=== PATIENT | male | born 1930 | race Caucasian/White ===

== ENCOUNTER 2016-11-22 23:55 | Emergency (ER) | payer OTHER ==
[~2016-11-22] VITALS: Ht 175.3 cm; Wt 65.0 kg
[~2016-11-22 23:55] MED LIST: ATOR40TA49 PO; CARD120C4 PO; COUM5TAB PO; GLUC10TA3 PO; LISI-360 PO; LORTA5 PO; METF-324 PO; MULT-28 PO; NADO1TAB16 PO; SYNT25TA PO; TAMS0.4C67 PO; VITA-13 PO; VITA250T5 PO; VITA400C70 PO; ZOFR4TAB3 SL
[2016-11-22 23:57] VITALS: BP 187/81; PULSE 94; RESP 18; TEMP 98; O2SAT 99
[2016-11-23] MEDS ORDERED: SODIUM CHLOR 0.9% 1000 ML INJ 1,000 ML IV SCH (00:20)
[2016-11-23] MEDS ORDERED: MULT-135 PO (00:26)
[2016-11-23] MEDS ORDERED: GLIP10TA6 PO (00:26)
[2016-11-23] MEDS ORDERED: LISI10TA3 PO (00:26)
[2016-11-23] MEDS ORDERED: LEVO100T5 PO (00:26)
[2016-11-23] MEDS ORDERED: DILT60TA PO (00:26)
[2016-11-23] MEDS ORDERED: VITA100064 PO (00:26)
[2016-11-23] MEDS ORDERED: VITA400C5 PO (00:26)
[2016-11-23] MEDS ORDERED: METF1000 PO (00:26)
[2016-11-23] MEDS ORDERED: WARF-23 PO (00:26)
[2016-11-23] MEDS ORDERED: ATOR20TA15 PO (00:26)
[2016-11-23] MEDS ORDERED: METO50TA PO (00:26)
--- NOTE | 2016-11-23 00:26 | PD ---
HPI Chief Complaint: Abdominal Pain Time Seen by Provider: 00:12 Travel History International Travel<30 days: No Contact w/Intl Traveler<30days: No Traveled to known affect area: No History of Present Illness HPI Patient is a 86-year-old male who presents to emergency room with his family for evaluation of abdominal pain. Patient reports that he felt fine all day, reports that he woke up tonight and had pain to his right lower abdomen. Patient reports that he felt nauseous, he did not vomit. Patient reports "I think I have appendicitis." Patient with no fevers or chills, reports that he has been having normal bowel movements. Patient with no other complaints. PFSH Past Medical History Hx Anticoagulant Therapy: Yes (WARFARIN) Atrial Fibrillation: Yes Cardiovascular Problems: Yes (BY PASS SURG>12 YRS AGO, HTN) Chest Pain: Yes Cerebrovascular Accident: Yes (CVA) Diabetes: Yes Patient Takes Glucophage: No Diminished Hearing: Yes (hearing aid bilat) GERD: Yes Hypertension: Yes Kidney Stones: Yes Neurologic: Yes (BELLS PALSY) Myocardial Infarction: Yes Thyroid Disease: Yes (HYPOTHYROIDISM) Past Surgical History Abdominal Surgery: Yes (GALLBLADDER) Cardiac Surgery: Yes (CABG) Cholecystectomy: Yes Coronary Artery Bypass Graft: Yes (x4) Eye Surgery: Yes (CATARACT BOTH) Thoracic Surgery: Yes (LEFT TIBIA & FIBIA, RIGHT KNEE) Tonsillectomy: Yes Other Surgery: Yes (THYROIDECTOMY) Family History Family Hypercholesterolemia: Yes (BOTH) Social History Alcohol Use: No Tobacco Use: No Substance Use: No Allergies-Medications (Allergen,Severity, Reaction): Coded Allergies: No Known Allergies (Verified , 11/23/16) Reported Meds & Prescriptions Reported Meds & Active Scripts Active Flomax (Tamsulosin HCl) 0.4 Mg Cap 0.4 Mg PO HS Cephalexin Liq (Cephalexin Monohydrate) 250 Mg/5 Ml Susp 500 Mg PO Q6H 10 Days Tylenol-Codeine Elixir (Acetaminophen-Codeine Liq) 120-12 Mg/5 Ml Soln 7.5 Ml PO Q6H PRN Reported E-400 (Vitamin E) 400 Unit Cap 400 Units PO Vitamin D (Cholecalciferol) 1,000 Unit Tab 1,000 Units PO DAILY Multi Vitamin (Multiple Vitamin) 1 Tab Tab 1 Tab PO DAILY Warfarin 5 Mg Tab 5 Mg PO DAILY Metoprolol Tartrate 50 Mg Tab 2,000 Mg PO DAILY Atorvastatin (Atorvastatin Calcium) 20 Mg Tab 20 Mg PO HS Metformin (Metformin HCl) 1,000 Mg Tab 1,000 Mg PO DAILY With a meal Glipizide 10 Mg Tab 10 Mg PO DAILY Take 30 minutes before a meal Diltiazem (Diltiazem HCl) 60 Mg Tab 180 Mg PO DAILY Lisinopril 10 Mg Tab 50 Mg PO DAILY Levothyroxine (Levothyroxine Sodium) 100 Mcg Tab 100 Mcg PO DAILY Review of Systems General / Constitutional: No: Fever Eyes: No: Visual changes HENT: No: Headaches Cardiovascular: No: Chest Pain or Discomfort Respiratory: No: Shortness of Breath Gastrointestinal: Positive: Nausea, Abdominal Pain Genitourinary: No: Dysuria Musculoskeletal: No: Pain Skin: No Rash Neurologic: No: Weakness Psychiatric: No: Depression Endocrine: No: Polydipsia Hematologic/Lymphatic: No: Easy Bruising Physical Exam Narrative GENERAL: No acute distress, nontoxic SKIN: Warm and dry. HEAD: Atraumatic. Normocephalic. EYES: Pupils equal and round. No scleral icterus. No injection or drainage. ENT: No nasal bleeding or discharge. Mucous membranes pink and moist. NECK: Trachea midline. No JVD. CARDIOVASCULAR: Regular rate and rhythm. No murmur appreciated. RESPIRATORY: No accessory muscle use. Clear to auscultation. Breath sounds equal bilaterally. GASTROINTESTINAL: Abdomen soft, patient with tenderness to right lower quadrant , no guarding on exam MUSCULOSKELETAL: No obvious deformities. No clubbing. No cyanosis. No edema. NEUROLOGICAL: Awake and alert. No obvious cranial nerve deficits. Motor grossly within normal limits. Normal speech. PSYCHIATRIC: Appropriate mood and affect; insight and judgment normal. Data Data Last Documented VS Vital Signs Date Time Temp Pulse Resp B/P Pulse Ox O2 Delivery O2 Flow Rate FiO2 11/23/16 01:32 18 11/22/16 23:57 98.0 94 187/81 99 Room Air Orders Complete Blood Count With Diff (11/23/16 00:20) Comprehensive Metabolic Panel (11/23/16 00:20) Lipase (11/23/16 00:20) Prothrombin Time / Inr (Pt) (11/23/16 00:20) Act Partial Throm Time (Ptt) (11/23/16 00:20) Urinalysis - C+S If Indicated (11/23/16 00:20) Ct Abd/Pel W Iv Contrast(Rout) (11/23/16 00:20) Iv Access Insert/Monitor (11/23/16 00:20) Sodium Chlor 0.9% 1000 Ml Inj (Ns 1000 M (11/23/16 00:20) Sodium Chloride 0.9% Flush (Ns Flush) (11/23/16 00:30) Morphine Inj (Morphine Inj) (11/23/16 01:15) Iohexol 350 Inj (Omnipaque 350 Inj) (11/23/16 01:24) Urine Culture (11/23/16 03:02) Labs Laboratory Tests Test 11/23/16 11/23/16 00:28 01:54 White Blood Count 9.1 TH/MM3 Red Blood Count 3.73 MIL/MM3 Hemoglobin 11.3 GM/DL Hematocrit 34.6 % Mean Corpuscular Volume 92.8 FL Mean Corpuscular Hemoglobin 30.2 PG Mean Corpuscular Hemoglobin 32.5 % Concent Red Cell Distribution Width 15.0 % Platelet Count 203 TH/MM3 Mean Platelet Volume 7.9 FL Neutrophils (%) (Auto) 67.7 % Lymphocytes (%) (Auto) 21.8 % Monocytes (%) (Auto) 8.4 % Eosinophils (%) (Auto) 1.0 % Basophils (%) (Auto) 1.1 % Neutrophils # (Auto) 6.1 TH/MM3 Lymphocytes # (Auto) 2.0 TH/MM3 Monocytes # (Auto) 0.8 TH/MM3 Eosinophils # (Auto) 0.1 TH/MM3 Basophils # (Auto) 0.1 TH/MM3 CBC Comment DIFF FINAL Differential Comment Prothrombin Time 29.2 SEC Prothromb Time International 2.5 RATIO Ratio Activated Partial 32.4 SEC Thromboplast Time Sodium Level 141 MEQ/L Potassium Level 4.0 MEQ/L Chloride Level 105 MEQ/L Carbon Dioxide Level 24.0 MEQ/L Anion Gap 12 MEQ/L Blood Urea Nitrogen 24 MG/DL Creatinine 1.23 MG/DL Estimat Glomerular Filtration 56 ML/MIN Rate Random Glucose 126 MG/DL Calcium Level 9.4 MG/DL Total Bilirubin 0.5 MG/DL Aspartate Amino Transf 21 U/L (AST/SGOT) Alanine Aminotransferase 12 U/L (ALT/SGPT) Alkaline Phosphatase 31 U/L Total Protein 6.9 GM/DL Albumin 3.5 GM/DL Lipase 192 U/L Urine Color LIGHT-YELLOW Urine Turbidity CLEAR Urine pH 6.0 Urine Specific [place] 1.026 Urine Protein NEG mg/dL Urine Glucose (UA) TRACE mg/dL Urine Ketones TRACE mg/dL Urine Occult Blood LARGE Urine Nitrite NEG Urine Bilirubin NEG Urine Urobilinogen LESS THAN 2.0 MG/DL Urine Leukocyte Esterase NEG Urine RBC 90 /hpf Urine WBC 4 /hpf Urine Squamous Epithelial <1 /hpf Cells Urine Mucus FEW /lpf Microscopic Urinalysis Comment CULT NOT INDICATED MDM Medical Decision Making Medical Screen Exam Complete: Yes Emergency Medical Condition: Yes Interpretation(s) Vital Signs Date Time Temp Pulse Resp B/P Pulse Ox O2 Delivery O2 Flow Rate FiO2 11/22/16 23:57 98.0 94 18 187/81 99 Room Air Differential Diagnosis Acute gastroenteritis, appendicitis, UTI, electrolyte abnormality Narrative Course Patient is an 86-year-old male who presents to emergency room with complaints of right lower quadrant abdominal pain. Patient reports that symptoms began tonight, reports that he woke up from sleep with right lower quadrant pain. Patient concerned that his symptoms are secondary to acute appendicitis. Labs as well as CAT scan of the abdomen and pelvis ordered. CBC & BMP Diagram 11/23/16 00:28 Last Impressions Abdomen/Pelvis CT 11/23/16 0020 Signed Impressions: Service Date/Time: Wednesday, November 23, 2016 01:19 - CONCLUSION: 1. Mild right-sided obstructive uropathy secondary to a 3 mm calculus in the proximal right ureter. Nonobstructing left renal calculus. 2. Bladder diverticulum anteriorly and posteriorly. No bowel obstruction, free air or free fluid. Ovi Bruce MD Patient with a kidney stone. Patient reports that he is feeling much better at this time. A copy of patient's records as well as CAT scan report was given to patient. Patient has history of kidney stones in the past, he does follow-up with a urologist. Patient will call the urologist first thing in the morning for earliest follow-up. Signs and symptoms of when to return to the emergency room was reviewed with patient in detail. Urine culture sent. Diagnosis Primary Impression: Kidney stone on right side Additional Impression: Anemia Qualified Code: D64.9 - Anemia, unspecified type Patient Instructions: General Instructions, Narcotic given in the ED Additional Instructions: Please follow-up with the urologist as soon as possible Please take all medications as prescribed Return to emergency room if symptoms worsen or progress or if he develops any fevers or chills or intractable pain Please call your primary care doctor for earliest follow-up. Please drink plenty of fluids Med/Other Pt SpecificInfo: Prescription(s) given Scripts Tamsulosin (Flomax)0.4 Mg Cap0.4 Mg PO HS #10 CAP Ref 0 Prov:Allegra Briggs DO 11/23/16 Cephalexin Liq 250 Mg/5 Ml [id number] Mg PO Q6H 10 Days Ref 0 Prov:Allegra Birggs DO 11/23/16 Acetaminophen-Codeine Liq (Tylenol-Codeine Elixir)120-12 Mg/5 Ml Soln7.5 Ml PO Q6H PRN (PAIN) #120 ML Ref 0 Prov:Allegra Briggs DO 11/23/16 Disposition: 01 DISCHARGE HOME Condition: Stable Allegra Briggs DO Nov 23, 2016 00:26
[2016-11-23] MEDS ORDERED: SODIUM CHLORIDE 0.9% FLUSH 5 ML FLUSH IVF PRN (00:30)
[2016-11-23 00:42] LABS: AUTOMATED NEUTROPHIL # 6.1 TH/MM3 (1.8-7.7); BASOPHIL # 0.1 TH/MM3 (0-0.2); BASOPHIL % 1.1 % (0.0-2.0); EOSINOPHIL # 0.1 TH/MM3 (0-0.4); HEMATOCRIT 34.6 % (39.0-51.0); HEMO FLAGS DIFF FINAL; LYMPH % 21.8 % (9.0-44.0); MEAN CELL VOLUME 92.8 FL (80.0-100.0); MEAN CORPUSCULAR HEMOGLOBIN 30.2 PG (27.0-34.0); MEAN CORPUSCULAR HGB CONC 32.5 % (32.0-36.0); MONO % 8.4 % (0.0-8.0); NEUT % 67.7 % (16.0-70.0); PLATELET COUNT 203 TH/MM3 (150-450); RED BLOOD COUNT 3.73 MIL/MM3 (4.50-5.90); WHITE BLOOD COUNT 9.1 TH/MM3 (4.0-11.0)
[2016-11-23 00:53] LABS: APTT (PATIENT) 32.4 SEC (24.3-30.1); INTERNATIONAL NORMALIZED RATIO 2.5 RATIO; PROTHROMBIN TIME - PATIENT 29.2 SEC (9.8-11.6)
[2016-11-23 00:58] LABS: ANION GAP 12 MEQ/L (5-15); AST (GOT) 21 U/L (15-37); BLOOD UREA NITROGEN 24 MG/DL (7-18); CHLORIDE 105 MEQ/L (98-107); GLOMERULAR FILTRATION RATE 56 ML/MIN (>89); SODIUM (NA) 141 MEQ/L (136-145)
[2016-11-23 01:01] LABS: ALKALINE PHOSPHATASE 31 U/L (45-117); ALT (GPT) 12 U/L (12-78); TOTAL BILIRUBIN ADULT 0.5 MG/DL (0.2-1.0)
[2016-11-23] MEDS ORDERED: MORPHINE SULFATE 4 MG/ML INJ IV PUSH ONE (01:15)
[2016-11-23] MEDS ORDERED: IOHEXOL 350 MG/ML 10 ML VIAL (for RAD DIAG) IV ONE (01:24)
[2016-11-23 01:32] VITALS: RESP 18
--- NOTE | 2016-11-23 01:45 | RADRPT ---
EXAM DATE/TIME: 11/23/2016 01:19 [facility] COMPARISON: CT ABDOMEN & PELVIS W CONTRAST, September 05, 2013, 2:13. INDICATIONS : Abdominal pain. IV CONTRAST: 100 cc Omnipaque 350 (iohexol) IV ORAL CONTRAST: No oral contrast ingested. RADIATION DOSE: 4.95 CTDIvol (mGy) MEDICAL HISTORY : Hypertension. Renal calculi. Diabetes mellitus type 2. SURGICAL HISTORY : Cholecystectomy. ENCOUNTER: Initial ACUITY: 1 day PAIN SCALE: 8/10 LOCATION: abdomen TECHNIQUE: Volumetric scanning of the abdomen and pelvis was performed. Using automated exposure control and ad justment of the mA and/or kV according to patient size, radiation dose was kept as low as reasonably achievable to obtain optimal diagnostic quality images. FINDINGS: There is approximately 3 mm calculus in the proximal right ureter with minimal right-sided hydronephr osis and obstructive uropathy with some perinephric stranding. Lung bases are clear exam minimal atelectasis. Dense coronary calcifications. Postoperative cholecystectomy. Minimal biliary ductal dilatation. No acute findings in the liver, spl een, adrenals or pancreas. Nonobstructing 6 mm left renal calculus lower pole. Small cyst upper left kidney. No bowel obstruction. No free fluid or free air. Subcentimeter anterior bladder diverticulum and 4 cm posterior bladder diverticulum noted. Extensive vascular calcifications without aneurysm. CONCLUSION: 1. Mild right-sided obstructive uropathy secondary to a 3 mm calculus in the proximal right ureter. N onobstructing left renal calculus. 2. Bladder diverticulum anteriorly and posteriorly. No bowel obstruction, free air or free fluid. Ovi Bruce MD on November 23, 2016 at 1:37 Board Certified Radiologist. This report was verified electronically.
[2016-11-23 02:45] LABS: BLOOD, URINE LARGE (NEG); COMMENT (UR) CULT NOT INDICATED; CULTURE IF INDICATED CULT NOT INDICATED; GLUCOSE,URINE TRACE mg/dL (NEG); KETONE, URINE TRACE mg/dL (NEG); MUCUS URINE FEW /lpf (OCC); NITRITE,URINE NEG (NEG); SQUAMOUS EPITHELIAL CELL URINE <1 /hpf (0-5); URINE COLOR LIGHT-YELLOW (YELLW/STRAW)
[2016-11-23] MEDS ORDERED: IBUP-232 PO (03:02)
[2016-11-23] MEDS ORDERED: TYLETAB34 PO (03:02)
[2016-11-23] MEDS ORDERED: TAMS5CAP PO ×2 (03:02→03:14)
[2016-11-23] MEDS ORDERED: CEPH-460 PO (03:02)
[2016-11-23] MEDS ORDERED: CEPH250S PO (03:06)
[2016-11-23] MEDS ORDERED: ACET120S PO (03:06)
== END 2016-11-23 03:55 | disposition home or self-care (01) ==
LOC: NEPC 23:55
DX: N20.0 Calculus of kidney (principal); D64.9 Anemia, unspecified; N32.3 Diverticulum of bladder; I48.91 Unspecified atrial fibrillation; I10 Essential (primary) hypertension; E11.9 Type 2 diabetes mellitus without complications; K21.9 Gastro-esophageal reflux disease without esophagitis; I25.2 Old myocardial infarction; E03.9 Hypothyroidism, unspecified; Z95.1 Presence of aortocoronary bypass graft
CPT/HCPCS: 74177; 80053; 81001; 83690; 85025; 85610; 85730; 87086; 96361; 96374; 99284; J2270; J7030; Q9967